=== PATIENT | female | born 1960 | race Caucasian/White ===

== ENCOUNTER 2022-03-08 14:08 | Observation (INO) ==
[2022-03-08] MEDS ORDERED: NS 1,000 ML IV 1,000 ML IV SCH (16:00)
[2022-03-08] MEDS ORDERED: NS 1,000 ML IV 1,000 ML IV ONE (18:10)
[2022-03-08 19:20] LABS: BASOPHILS % (AUTO) 0.8 % (0.2-1.0); EOSINOPHILS % (AUTO) 0.3 % (0.9-2.9); HEMATOCRIT 23.9 % (36.0-47.0); HEMOGLOBIN 7.4 g/dL (12.0-16.0); LYMPHOCYTES % (AUTO) 19.3 % (21.0-51.0); MEAN CORPUSCULAR HEMOGLOBIN 22.5 pg (27.0-34.0); MEAN CORPUSCULAR VOLUME 72.7 fL (80.0-100.0); MEAN PLATELET VOLUME 8.5 fL (7.4-11.0); MONOCYTES # (AUTO) 0.5 x10^3/uL (0.3-0.8); MONOCYTES % (AUTO) 10.5 % (0.0-13.0); NEUTROPHILS # (AUTO) 3.6 x10^3/uL (2.2-4.8); NEUTROPHILS % (AUTO) 69.1 % (42.0-75.0); RED BLOOD COUNT 3.29 X10^6/uL (3.5-5.4); RED CELL DISTRIBUTION WIDTH 18.3 % (11.6-16.5); WHITE BLOOD COUNT 5.2 X10^3/uL (3.6-10.0)
[2022-03-08 19:37] LABS: PLATELET MORPHOLOGY COMMENT NORMAL (NORMAL)
[2022-03-08 19:38] LABS: AMMONIA 15 umol/L (11-32); MICROCYTOSIS SLIGHT
[2022-03-08 19:46] LABS: ALANINE AMINOTRANSFERASE 14 Units/L (12-78); ALBUMIN 2.7 g/dL (3.4-5.0); ALKALINE PHOSPHATASE 84 Units/L (46-116); ASPARTATE AMINO TRANSFERASE 31 Units/L (15-37); BLOOD UREA NITROGEN 13 mg/dL (7-18); CARBON DIOXIDE 35.3 mmol/L (21-32); CHLORIDE 99 mmol/L (98-107); COR NA(FOR HYPERGLY) 141 mmol/L (136-145); CREATININE 0.74 mg/dL (0.55-1.02); FREE T4 (FREE THYROXINE) 1.52 ng/dL (0.76-1.46); MAGNESIUM 2.1 mg/dL (2.0-2.9); SODIUM 140 mmol/L (136-145); TOTAL PROTEIN 7.2 g/dL (6.4-8.2); TSH (3RD GENERATION) 4.891 uIU/mL (0.358-3.74); eGFR NON BLACK RACES > 60 (>60)
[2022-03-08 20:17] VITALS: BMI 49.6
[2022-03-08] MEDS ORDERED: PHARMACY CONSULT LTC MEDICATIONS XX SCH (21:00)
--- NOTE | 2022-03-08 21:00 | EKG ---
Test Reason : TACHY Blood Pressure : */* mmHG Vent. Rate : 137 BPM Atrial Rate : 137 BPM P-R Int : 130 ms QRS Dur : 84 ms QT Int : 268 ms P-R-T Axes : 11 57 -29 degrees QTc Int : 404 ms Sinus tachycardia Low voltage QRS Nonspecific ST and T wave abnormality Abnormal ECG No previous ECGs available Confirmed by Sanjiv Sam ([id number]) on 03/09/2022 3:19:36 PM Referred By: Confirmed By: Sanjiv Sam
[2022-03-08] MEDS: COREG TAB 6.25 MG PO SCH ×3 (21:43→23:49)
[2022-03-08] MEDS ORDERED: NS 250 ML IV 250 ML IV ONE (23:27)
[2022-03-09 02:32] LABS: BILIRUBIN,URINE NEGATIVE (NEGATIVE); BLOOD/HEMOGLOBIN,URINE 4+ (NEGATIVE); GLUCOSE, URINE NEGATIVE (NEGATIVE); KETONES,URINE NEGATIVE (NEGATIVE); LEUKOCYTE ESTERASE ,URINE NEGATIVE (NEGATIVE); NITRITES,URINE NEGATIVE (NEGATIVE); PROTEIN,URINE NEGATIVE (NEGATIVE); UROBILINOGEN,URINE NORMAL (NORMAL)
[2022-03-09 02:38] LABS: APPEARANCE,URINE CLEAR (CLEAR); COLOR,URINE YELLOW (YELLOW); SQUAMOUS EPITHELIAL CELL,UR RARE /HPF (NEGATIVE)
[2022-03-09 02:39] LABS: BACTERIA,URINE NEGATIVE /HPF (NEGATIVE)
[2022-03-09 03:33] LABS: HEMATOCRIT 24.7 % (36.0-47.0); HEMOGLOBIN 7.9 g/dL (12.0-16.0)
[2022-03-09] MEDS ORDERED: POTASSIUM CHL 40 MEQ/NS 0.45% 500 ML IV PRN (07:56)
[2022-03-09] MEDS ORDERED: K-DUR TAB 20 MEQ PO PRN (07:56)
[2022-03-09] MEDS ORDERED: KLOR-CON PO PRN (07:56)
[2022-03-09] MEDS ORDERED: POTASSIUM CHL 60 MEQ/NS 0.45% 500 ML IV PRN (07:56)
[2022-03-09] MEDS ORDERED: POTASSIUM CHLORIDE LIQ 20 MEQ UDC PO PRN (07:56)
[2022-03-09] MEDS ORDERED: MICRO K EXTEN CAP 10 MEQ PO PRN (07:56)
--- NOTE | 2022-03-09 08:35 | RAD ---
HISTORYAMS Relevant Clinical InformationSTUDYCHEST, 1 VIEWCOMPARISONNone availableFINDINGSThere is elevation of the right diaphragm. There is large cardiomegalyMediastinum within normal limits. There is no evidence of dominant pleural effusions or pneumothoraxNo dominant alveolar radiopacities.IMPRESSIONNo acute cardiopulmonary findings. Elevation of the right diaphragm.Electronically signed by: Anni Pierre (Mar 09, 2022 08:34:04)
[2022-03-09] MEDS ORDERED: K-DUR TAB 20 MEQ PO SCH (09:00)
[2022-03-09] MEDS ORDERED: FENTANYL 12 MCG/HR TRANSDERMAL SCH (09:00)
[2022-03-09 09:42] LABS: IRON 32 ug/dL (50-175)
[2022-03-09] MEDS: BUSPAR PO SCH ×2 (10:00→21:41)
[2022-03-09] MEDS: LEXAPRO PO SCH (10:00)
[2022-03-09] MEDS ORDERED: LEXAPRO ONE (10:10)
[2022-03-09] MEDS ORDERED: NS 100 ML IV 100 ML ONE ×2 (10:12→14:19)
[2022-03-09] MEDS: CATAPRES TAB 0.2 MG PO SCH ×2 (10:19→21:43)
[2022-03-09] MEDS: COREG TAB 6.25 MG PO SCH ×2 (10:19→21:41)
[2022-03-09] MEDS: ALDACTONE TAB 25 MG PO SCH (10:21)
[2022-03-09] MEDS: ATARAX TAB 25 MG PO SCH ×2 (10:22→21:42)
[2022-03-09] MEDS: PROTONIX TAB 40 MG PO SCH (10:22)
[2022-03-09] MEDS: ASPIRIN EC 81 MG PO SCH (10:23)
[2022-03-09] MEDS: SENOKOT PO SCH ×2 (10:23→21:42)
[2022-03-09] MEDS: FOLIC ACID TAB 1 MG PO SCH (10:23)
[2022-03-09] MEDS: LASIX PO SCH (10:23)
[2022-03-09] MEDS: K-RIDER 10 MEQ/NS 100 ML 10 MEQ/100 ML BAG IV PRN (10:28)
--- NOTE | 2022-03-09 13:58 | DR.H&P ---
H&P - History & Physical for Day of: H&P Date: 03/08/22 - Chief Complaint Chief Complaint: WEAKNESS - History of Present Illness History of Present Illness: PT IS 61 WF, DIRECT ADMIT WITH ANEMIA AND INCREASED WEAKNESS. PT IS MORBDILY OBESE WITH PMH OF HTN, OA, GERD, ANEMIA, DM WITH OUTPT CBC REVEALING HGB 6.9. PT WAS ADMITTED FOR TREATMENT OF ACUTE ANEMIA WITH PLAN TO TRANSFUSE PRBC PER PROTOCOL. - Past Medical History Past Medical History: Anxiety, Arthritis, Dementia, Depression, Dyslipidemia, GERD, Hypertension - Past Surgical History Surgical History: Unknown - Family History Family Medical History: Hypertension - Social History Does patient currently use any type of tobacco product: No Have you used tobacco products in the last 12 months: No Type of Tobacco Use: None Does any household member use tobacco: No Alcohol Use: None Drug Use: None - Medications Home Medications: bee pollen Allergy (Verified 03/08/22 20:19) bee venom protein (honey bee) Allergy (Verified 03/08/22 20:19) Carbapenems Adverse Reaction (Verified 03/08/22 20:19) Cephalosporins Adverse Reaction (Verified 03/08/22 20:19) Interferons Adverse Reaction (Verified 03/08/22 20:19) CONTINUE taking the following medications albuterol sulfate 90 mcg/actuation aerosol inhaler (ProAir HFA) 1 puff in halation 6XD PRN 03/08/22 [History] aspirin 81 mg capsule 81 mg PO QDAY 03/08/22 [History] buspirone 10 mg tablet 10 mg PO BID 03/08/22 [History] clonidine HCl 0.2 mg tablet 0.2 mg PO BID 03/08/22 [History] cyclobenzaprine 10 mg tablet 10 mg PO TID PRN 03/08/22 [History] ergocalciferol (vitamin D2) 1,250 mcg (50,000 unit) capsule 1,250 mcg PO DAILY 03/08/22 [History] escitalopram oxalate 20 mg tablet (Lexapro) 20 mg PO QDAY 03/08/22 [History] fentanyl 12 mcg/hr transdermal patch 1 patch transdermal Q72H 03/08/22 [History] fentanyl 50 mcg/hr transdermal patch 1 patch transdermal Q72H 03/08/22 [History] folic acid 1 mg tablet 1 mg PO QDAY 03/08/22 [History] furosemide 20 mg tablet 20 mg PO QAM 03/08/22 [History] hydroxyzine HCl 25 mg tablet 25 mg PO BID 03/08/22 [History] magnesium oxide 400 mg PO BID 03/08/22 [History] melatonin 5 mg tablet 5 mg PO HS 03/08/22 [History] metolazone 5 mg tablet 5 mg PO QDAY 03/08/22 [History] pantoprazole 40 mg tablet,delayed release (Protonix) 40 mg PO QDAY 03/08/22 [History] potassium chloride 20 mEq tablet,extended release 20 meq PO QDAY 03/08/22 [History] risperidone 0.5 mg tablet 0.5 mg PO QDAY 03/08/22 [History] risperidone 1 mg tablet 1 mg PO QHS 03/08/22 [History] sennosides 8.6 mg tablet (Senokot) 8.6 mg PO BID 03/08/22 [History] solifenacin 10 mg tablet 10 mg PO QDAY 03/08/22 [History] spironolactone 25 mg tablet (Aldactone) 25 mg PO QDAY 03/08/22 [History] trazodone 50 mg tablet 75 mg PO QHS 03/08/22 [History] - Review of Systems Constitutional: Weakness Eyes: No Symptoms Reported ENT: No Symptoms Reported Respiratory: No Symptoms Reported Cardiovascular: No Symptoms Reported, Edema Gastrointestinal: No Symptoms Reported Genitourinary: Incontinence Musculoskeletal: Back Pain Skin: No Symptoms Reported Neurological: Weakness - Physical Exam Vital Signs: Temperature 99.3 F Pulse Rate [Apical] 95 Respiratory Rate 18 Blood Pressure [Right Arm] 120/63 O2 Sat by Pulse Oximetry 95 Oriented: Person Eyes: Normal Ear: Normal Nose: Normal Respiratory: Diminished Throughout Cardiovascular: Normal Auscultation: Bowel Sounds: Normal Palpation: Normal Tenderness: Normal Skin: Decreased Turgur Musculoskeletal: Left, Arm, Back:Lumbar, Motor Deficit Mood Description: Calm Speech Pattern: Clear - Assessment/Plan (1) Anemia Status: Acute Plan: ADMIT, TRANSFUSE PRBC PER PROTOCOL WITH REPEAT CBC POST TRANSFUSION. VERIFY HOME RESUME HOME MEDICATION. UA AND CMP ON ADMISSION. SUPPLEMENTAL O2 (2) Hypertension Status: Acute (3) Dementia Status: Acute (4) Chronic osteoarthritis Status: Acute - Allergies Allergies/Adverse Reactions: Allergies Allergy/AdvReac Type Severity Reaction Status Date / Time bee pollen Allergy Verified 03/08/22 20:19 bee venom protein (honey bee) Allergy Verified 03/08/22 20:19 Carbapenems AdvReac Verified 03/08/22 20:19 Cephalosporins AdvReac Verified 03/08/22 20:19 Interferons AdvReac Verified 03/08/22 20:19
[2022-03-09] MEDS ORDERED: LASIX IVP ONE (16:00)
[2022-03-09] MEDS ORDERED: K-DUR TAB 20 MEQ PO ONE (16:20)
[2022-03-09] MEDS: K-DUR TAB 20 MEQ PO SCH (17:00)
--- NOTE | 2022-03-09 17:07 | RAD ---
HISTORYPOSSIBLE FLUID OVERLOADSTUDYCHEST, 1 [id number]/2022FINDINGSThe cardiomediastinal silhouette is stable. Similar mild elevation of the right hemidiaphragm. No acute airspace disease. No pneumothorax or effusion. The bony thorax appears intact.IMPRESSIONNo acute cardiopulmonary disease.Electronically signed by: MACK SUTTON (Mar 09, 2022 17:04:58)
[2022-03-09 17:10] LABS: HEMOGLOBIN 9.7 g/dL (12.0-16.0)
[2022-03-09 17:15] LABS: HEMATOCRIT 30.3 % (36.0-47.0)
[2022-03-09] MEDS: RisperDAL TAB 1 MG PO SCH (21:42)
[2022-03-09] MEDS: DESYREL PO SCH (21:43)
[2022-03-10] MEDS: BUSPAR PO SCH ×2 (09:00→22:01)
[2022-03-10] MEDS: K-DUR TAB 20 MEQ PO SCH (09:00)
[2022-03-10 09:12] LABS: BASOPHILS # (AUTO) 0.3 X10^3/uL (0.0-0.1); BASOPHILS % (AUTO) 3.6 % (0.2-1.0); EOSINOPHILS # (AUTO) 0.1 x10^3/uL (0.0-0.2); EOSINOPHILS % (AUTO) 1.7 % (0.9-2.9); HEMATOCRIT 29.4 % (36.0-47.0); HEMOGLOBIN 9.3 g/dL (12.0-16.0); LYMPHOCYTES # (AUTO) 1.3 X10^3/uL (1.3-2.9); LYMPHOCYTES % (AUTO) 16.2 % (21.0-51.0); MEAN CORPUSCULAR HEMOGLOBIN 24.2 pg (27.0-34.0); MEAN CORPUSCULAR HGB CONC 31.8 g/dL (33.0-35.0); MEAN PLATELET VOLUME 8.7 fL (7.4-11.0); MONOCYTES # (AUTO) 0.6 x10^3/uL (0.3-0.8); MONOCYTES % (AUTO) 7.8 % (0.0-13.0); NEUTROPHILS # (AUTO) 5.9 x10^3/uL (2.2-4.8); NEUTROPHILS % (AUTO) 70.7 % (42.0-75.0); RED BLOOD COUNT 3.87 X10^6/uL (3.5-5.4); RED CELL DISTRIBUTION WIDTH 17.8 % (11.6-16.5); WHITE BLOOD COUNT 8.3 X10^3/uL (3.6-10.0)
[2022-03-10 09:22] LABS: ALANINE AMINOTRANSFERASE 15 Units/L (12-78); ALBUMIN 2.7 g/dL (3.4-5.0); ALKALINE PHOSPHATASE 80 Units/L (46-116); ASPARTATE AMINO TRANSFERASE 33 Units/L (15-37); BLOOD UREA NITROGEN 13 mg/dL (7-18); CALCIUM 8.6 mg/dL (8.5-10.1); CARBON DIOXIDE 35.5 mmol/L (21-32); CHLORIDE 100 mmol/L (98-107); COR CA(FOR HYPOALB) 9.6 mg/dL (8.5-10.1); CREATININE 0.76 mg/dL (0.55-1.02); SODIUM 140 mmol/L (136-145); TOTAL PROTEIN 6.9 g/dL (6.4-8.2); eGFR NON BLACK RACES > 60 (>60)
[2022-03-10 09:44] LABS: ANISOCYTOSIS SLIGHT; HYPOCHROMASIA SLIGHT; MICROCYTOSIS SLIGHT; PLATELET MORPHOLOGY COMMENT NORMAL (NORMAL)
[2022-03-10 09:46] LABS: BAND NEUTROPHILS % 2 % (0-10)
[2022-03-10] MEDS ORDERED: LEXAPRO ONE (09:51)
[2022-03-10] MEDS: ALDACTONE TAB 25 MG PO SCH (09:58)
[2022-03-10] MEDS: LEXAPRO PO SCH (09:58)
[2022-03-10] MEDS: ASPIRIN EC 81 MG PO SCH (09:58)
[2022-03-10] MEDS: COREG TAB 6.25 MG PO SCH ×2 (09:59→21:17)
[2022-03-10] MEDS: CATAPRES TAB 0.2 MG PO SCH ×2 (10:01→21:17)
[2022-03-10] MEDS: ATARAX TAB 25 MG PO SCH ×2 (10:01→21:35)
[2022-03-10] MEDS: PROTONIX TAB 40 MG PO SCH (10:02)
[2022-03-10] MEDS: FOLIC ACID TAB 1 MG PO SCH (10:05)
[2022-03-10] MEDS: LASIX PO SCH (10:06)
[2022-03-10] MEDS: SENOKOT PO SCH ×2 (10:06→21:30)
[2022-03-10] MEDS: K-RIDER 10 MEQ/NS 100 ML 10 MEQ/100 ML BAG IV PRN ×6 (10:33→18:32)
[2022-03-10] MEDS: DESYREL PO SCH (21:19)
[2022-03-10] MEDS: RisperDAL TAB 1 MG PO SCH (22:01)
[2022-03-11 02:09] LABS: BASOPHILS # (AUTO) 0.1 X10^3/uL (0.0-0.1); BASOPHILS % (AUTO) 0.8 % (0.2-1.0); EOSINOPHILS # (AUTO) 0.2 x10^3/uL (0.0-0.2); HEMATOCRIT 29.4 % (36.0-47.0); HEMOGLOBIN 9.4 g/dL (12.0-16.0); LYMPHOCYTES # (AUTO) 2.1 X10^3/uL (1.3-2.9); MEAN CORPUSCULAR HEMOGLOBIN 24.4 pg (27.0-34.0); MEAN CORPUSCULAR VOLUME 76.3 fL (80.0-100.0); MEAN PLATELET VOLUME 8.6 fL (7.4-11.0); MONOCYTES % (AUTO) 12.3 % (0.0-13.0); NEUTROPHILS # (AUTO) 4.9 x10^3/uL (2.2-4.8); NEUTROPHILS % (AUTO) 59.9 % (42.0-75.0); RED BLOOD COUNT 3.86 X10^6/uL (3.5-5.4); RED CELL DISTRIBUTION WIDTH 17.9 % (11.6-16.5); WHITE BLOOD COUNT 8.3 X10^3/uL (3.6-10.0)
[2022-03-11 02:19] LABS: ALANINE AMINOTRANSFERASE 14 Units/L (12-78); ALBUMIN 2.6 g/dL (3.4-5.0); ALKALINE PHOSPHATASE 75 Units/L (46-116); ASPARTATE AMINO TRANSFERASE 34 Units/L (15-37); BLOOD UREA NITROGEN 12 mg/dL (7-18); CALCIUM 8.4 mg/dL (8.5-10.1); CARBON DIOXIDE 32.9 mmol/L (21-32); CHLORIDE 101 mmol/L (98-107); COR CA(FOR HYPOALB) 9.5 mg/dL (8.5-10.1); CREATININE 0.64 mg/dL (0.55-1.02); MAGNESIUM 1.6 mg/dL (2.0-2.9); SODIUM 138 mmol/L (136-145); TOTAL PROTEIN 6.8 g/dL (6.4-8.2); eGFR NON BLACK RACES > 60 (>60)
[2022-03-11] MEDS: MAGNESIUM SULFATE 1 GRAM/100 mL PREMIX 1 G/100 ML BAG IV PRN ×2 (02:33→03:31)
[2022-03-11] MEDS ORDERED: LEXAPRO ONE (09:07)
[2022-03-11] MEDS: K-DUR TAB 20 MEQ PO SCH (09:08)
[2022-03-11] MEDS: COREG TAB 6.25 MG PO SCH (09:09)
[2022-03-11] MEDS: LEXAPRO PO SCH (09:09)
[2022-03-11] MEDS: FOLIC ACID TAB 1 MG PO SCH (09:09)
[2022-03-11] MEDS: ASPIRIN EC 81 MG PO SCH (09:09)
[2022-03-11] MEDS: SENOKOT PO SCH (09:09)
[2022-03-11] MEDS: CATAPRES TAB 0.2 MG PO SCH (09:09)
[2022-03-11] MEDS: ALDACTONE TAB 25 MG PO SCH (09:09)
[2022-03-11] MEDS: LASIX PO SCH (09:09)
[2022-03-11] MEDS: ATARAX TAB 25 MG PO SCH (09:09)
[2022-03-11] MEDS: PROTONIX TAB 40 MG PO SCH (09:10)
[2022-03-11] MEDS: BUSPAR PO SCH (09:10)
[2022-03-11 12:42] VITALS: BP 110/56
== END 2022-03-11 13:08 ==
LOC: MED/SURG
PROVIDERS: ADMIT Internal Medicine; ATTEND Internal Medicine
DX: E66.01 Morbid (severe) obesity due to excess calories; R41.82 Altered mental status, unspecified; E11.65 Type 2 diabetes mellitus with hyperglycemia; D64.89 Other specified anemias; R94.31 Abnormal electrocardiogram [ECG] [EKG]; E78.2 Mixed hyperlipidemia; I10 Essential (primary) hypertension; E87.6 Hypokalemia; E53.1 Pyridoxine deficiency; F41.8 Other specified anxiety disorders; K21.9 Gastro-esophageal reflux disease without esophagitis; M19.90 Unspecified osteoarthritis, unspecified site; B96.29 Other Escherichia coli [E. coli] as the cause of diseases classified elsewhere

== ENCOUNTER 2022-03-12 14:55 | Inpatient (IN) ==
[2022-03-12 17:33] VITALS: BMI 49.6
[2022-03-12 17:50] LABS: ABG ALLEN TEST POS; ABG BASE EXCESS 3.8 mmol/L (-2.0-2.0); ABG HCO3 29.7 mmol/L (22-26)
[2022-03-12] MEDS ORDERED: ROCEPHIN 1 GRAM IV PREMIX 1 G/50 ML IV.SOLN. IV SCH (19:00)
[2022-03-12 19:31] LABS: BASOPHILS # (AUTO) 0.1 X10^3/uL (0.0-0.1); BASOPHILS % (AUTO) 0.7 % (0.2-1.0); EOSINOPHILS # (AUTO) 0.2 x10^3/uL (0.0-0.2); HEMATOCRIT 30.7 % (36.0-47.0); HEMOGLOBIN 9.6 g/dL (12.0-16.0); LYMPHOCYTES # (AUTO) 1.5 X10^3/uL (1.3-2.9); LYMPHOCYTES % (AUTO) 18.1 % (21.0-51.0); MEAN CORPUSCULAR HEMOGLOBIN 23.6 pg (27.0-34.0); MEAN CORPUSCULAR HGB CONC 31.4 g/dL (33.0-35.0); MEAN CORPUSCULAR VOLUME 75.3 fL (80.0-100.0); MEAN PLATELET VOLUME 8.2 fL (7.4-11.0); MONOCYTES # (AUTO) 0.7 x10^3/uL (0.3-0.8); MONOCYTES % (AUTO) 8.4 % (0.0-13.0); NEUTROPHILS # (AUTO) 5.9 x10^3/uL (2.2-4.8); NEUTROPHILS % (AUTO) 70.8 % (42.0-75.0); RED BLOOD COUNT 4.08 X10^6/uL (3.5-5.4); RED CELL DISTRIBUTION WIDTH 17.5 % (11.6-16.5); WHITE BLOOD COUNT 8.4 X10^3/uL (3.6-10.0)
--- NOTE | 2022-03-12 19:38 | RAD ---
HISTORYAMSSTUDYCHEST, 1 VIEWCOMPARISONDeceer 2021TECHNIQUEChest radiographic imaging, frontal projection, 1 imageFINDINGSNo cardiomegaly.No focal airspace disease.No pleural effusion.No pneumothorax.No acute osseous abnormality.Elevation of the right diaphragm; as seen on the previous exam.IMPRESSIONNo imaging findings of acute cardiopulmonary disease.Electronically signed by: Wei Moreno (Mar 12, 2022 19:37:05)
[2022-03-12 19:43] LABS: AMMONIA 12 umol/L (11-32)
[2022-03-12 19:51] LABS: ALANINE AMINOTRANSFERASE 18 Units/L (12-78); ALBUMIN 2.8 g/dL (3.4-5.0); ALKALINE PHOSPHATASE 76 Units/L (46-116); ASPARTATE AMINO TRANSFERASE 34 Units/L (15-37); BLOOD UREA NITROGEN 10 mg/dL (7-18); CALCIUM 8.7 mg/dL (8.5-10.1); CARBON DIOXIDE 30.5 mmol/L (21-32); CHLORIDE 100 mmol/L (98-107); COR CA(FOR HYPOALB) 9.7 mg/dL (8.5-10.1); CREATININE 0.59 mg/dL (0.55-1.02); FREE T4 (FREE THYROXINE) 1.53 ng/dL (0.76-1.46); SODIUM 139 mmol/L (136-145); TOTAL PROTEIN 7.2 g/dL (6.4-8.2); TSH (3RD GENERATION) 4.139 uIU/mL (0.358-3.74); eGFR NON BLACK RACES > 60 (>60)
[2022-03-12] MEDS: NS 1,000 ML IV 1,000 ML IV SCH (20:00)
[2022-03-12] MEDS ORDERED: LEVAQUIN PREMIX IV 500 MG 500 MG/100 ML BAG IV ONE (20:18)
[2022-03-12 20:20] LABS: IRON 25 ug/dL (50-175)
[2022-03-12] MEDS: COREG TAB 6.25 MG PO SCH (21:06)
[2022-03-12] MEDS: CATAPRES TAB 0.2 MG PO SCH (21:06)
[2022-03-12 21:09] LABS: BILIRUBIN,URINE 1+ (NEGATIVE); BLOOD/HEMOGLOBIN,URINE 5+ (NEGATIVE); GLUCOSE, URINE NEGATIVE (NEGATIVE); KETONES,URINE 4+ (NEGATIVE); LEUKOCYTE ESTERASE ,URINE 3+ (NEGATIVE); NITRITES,URINE POSITIVE (NEGATIVE); PROTEIN,URINE 3+ (NEGATIVE); UROBILINOGEN,URINE 1+ (NORMAL)
[2022-03-12 21:14] LABS: APPEARANCE,URINE CLOUDY (CLEAR); BACTERIA,URINE 2+ /HPF (NEGATIVE); COLOR,URINE YELLOW (YELLOW); RBC,URINE TNTC /HPF (0-3); SQUAMOUS EPITHELIAL CELL,UR FEW /HPF (NEGATIVE)
[2022-03-12] MEDS: NYSTATIN POWDER TOP SCH (21:15)
--- NOTE | 2022-03-12 22:53 | CT ---
HISTORYAMSSTUDYBRAIN W/O CONCOMPARISONNone available.TECHNIQUEAxial non-contrast images of the head were obtained with coronal and sagittal reformats provided.Radiation dose: 817.54 mGy-cm total DLPFINDINGSNo abnormal areas of acute attenuation in the brain parenchyma.Oneal-white differentiation remains intact.No intracranial, extra-axial, fluid collection.No hemorrhage.Periventricular chronic microvascular disease.No mass, mass effect or midline shift.Age related brain parenchymal global atrophy.No ventriculomegaly.No acute fracture.Sinuses are well aerated.Mastoid air cells are well aerated.Globes and intra-orbital contents are unremarkable.Cerumen in the external auditory canals.IMPRESSIONNo acute intracranial abnormality identified.Electronically signed by: Wei Moreno (Mar 12, 2022 22:51:03)
[2022-03-13] MEDS ORDERED: PHARMACY CONSULT - TOBRAMYCIN XX SCH (02:00)
[2022-03-13] MEDS: TOBRAMYCIN SULFATE 80 MG in NS 100 ML IV 98 ML IV SCH ×3 (02:17→21:28)
[2022-03-13] MEDS ORDERED: TOBRAMYCIN SULFATE 400 MG in NS 100 ML IV 100 ML IV SCH (02:30)
[2022-03-13] MEDS: INVanz INJ 1 GRAM VIAL 1 G in NS 100 ML IV 100 ML IV SCH (03:11)
[2022-03-13] MEDS ORDERED: TOBRAMYCIN SULFATE 80 MG in NS 100 ML IV 98 ML IV SCH (06:00)
[2022-03-13] MEDS: COREG TAB 6.25 MG PO SCH ×2 (09:42→20:28)
[2022-03-13] MEDS: CATAPRES TAB 0.2 MG PO SCH (09:42)
[2022-03-13] MEDS: LOVENOX INJ 40 MG SYR SC SCH (09:43)
[2022-03-13] MEDS: NYSTATIN POWDER TOP SCH ×2 (10:00→20:38)
[2022-03-13] MEDS: NS 1,000 ML IV 1,000 ML IV SCH ×2 (10:00→19:30)
[2022-03-13] MEDS ORDERED: PHARMACY CONSULT LTC MEDICATIONS XX SCH (17:00)
[2022-03-13] MEDS: ASPIRIN EC 81 MG PO SCH (17:42)
[2022-03-13] MEDS: ZAROXOLYN PO SCH (17:42)
[2022-03-13] MEDS: PROTONIX TAB 40 MG PO SCH (17:43)
[2022-03-13] MEDS: K-DUR TAB 20 MEQ PO SCH (17:43)
[2022-03-13] MEDS: HEMOCYTE-PLUS PO SCH (17:43)
--- NOTE | 2022-03-13 17:47 | DR.H&P ---
H&P - History & Physical for Day of: H&P Date: 03/12/22 - Chief Complaint Chief Complaint: AMS - History of Present Illness History of Present Illness: PT IS 61 WF, RESIDENT OF [facility] WITH REPORTS OF ALTERED MENTAL STATUS. NURSING STAFF REPORT PT ALSO INCREASED LEFT SIDE WEAKNESS. PT HAS PMH OF ANEMIA, HTN, CHRONIC PAIN, OA, COPD, DM. PT ADMITTED FOR TREATMENT AND EVALUATION OF ACUTE ILLNESS. RO SEPSIS, CVA. - Past Medical History Past Medical History: Anxiety, Arthritis, Dementia, Depression, Dyslipidemia, GERD, Hypertension - Past Surgical History Surgical History: Unknown - Family History Family Medical History: Hypertension - Social History Does patient currently use any type of tobacco product: No Type of Tobacco Use: None Does any household member use tobacco: No Alcohol Use: None Drug Use: None - Medications Home Medications: bee pollen Allergy (Verified 03/08/22 20:19) bee venom protein (honey bee) Allergy (Verified 03/08/22 20:19) Carbapenems Adverse Reaction (Verified 03/08/22 20:19) Cephalosporins Adverse Reaction (Verified 03/08/22 20:19) Interferons Adverse Reaction (Verified 03/08/22 20:19) - Review of Systems Constitutional: No Symptoms Reported, Weakness Eyes: No Symptoms Reported ENT: No Symptoms Reported Cardiovascular: Edema Gastrointestinal: Nausea Genitourinary: Incontinence Musculoskeletal: Back Pain Skin: No Symptoms Reported Neurological: Weakness, Confusion - Physical Exam Vital Signs: Temperature 98.9 F Pulse Rate [Right Radial] 114 Pulse Rate 82 Respiratory Rate 17 Blood Pressure [Right Arm] 151/96 Blood Pressure 119/59 O2 Sat by Pulse Oximetry 100 Oriented: Person Eyes: Normal Ear: Normal Nose: Normal Throat: Normal Respiratory: Wheezes Throughout Cardiovascular: Normal, Edema Auscultation: Bowel Sounds: Normal Palpation: Normal Tenderness: Normal Skin: Decreased Turgur Musculoskeletal: Normal, Right, Back:Lumbar, Motor Deficit Psychiatric: Normal Mood Description: Calm Speech Pattern: Clear - Assessment/Plan (1) Altered mental status Status: Acute Plan: ADMIT CT HEAD ON ADMISSION. BLOOD AND URINE CULTURE. IV HYDRATION, IV ATBX THERAPY. VERIFY HOME MEDICATION (2) Urinary tract infection Status: Acute (3) Anemia Status: Acute (4) Hypertension Status: Acute - Allergies Allergies/Adverse Reactions: Allergies Allergy/AdvReac Type Severity Reaction Status Date / Time bee pollen Allergy Verified 03/08/22 20:19 bee venom protein (honey bee) Allergy Verified 03/08/22 20:19 Carbapenems AdvReac Verified 03/08/22 20:19 Cephalosporins AdvReac Verified 03/08/22 20:19 Interferons AdvReac Verified 03/08/22 20:19
[2022-03-13] MEDS: MAG-OX TAB PO SCH (20:28)
[2022-03-13] MEDS: NORCO 5/325 MG TAB PO PRN (20:28)
[2022-03-13] MEDS ORDERED: CATAPRES TAB 0.2 MG PO SCH (21:00)
[2022-03-13] MEDS ORDERED: RisperDAL TAB 1 MG PO SCH (21:00)
[2022-03-13] MEDS ORDERED: BUSPAR PO SCH (21:00)
[2022-03-13] MEDS ORDERED: DESYREL PO SCH (21:00)
[2022-03-14] MEDS: NORCO 5/325 MG TAB PO PRN ×4 (03:23→23:39)
[2022-03-14] MEDS: NS 1,000 ML IV 1,000 ML IV SCH ×2 (03:25→15:00)
[2022-03-14 05:25] LABS: BASOPHILS # (AUTO) 0.1 X10^3/uL (0.0-0.1); BASOPHILS % (AUTO) 1.2 % (0.2-1.0); EOSINOPHILS # (AUTO) 0.1 x10^3/uL (0.0-0.2); EOSINOPHILS % (AUTO) 1.9 % (0.9-2.9); HEMATOCRIT 30.8 % (36.0-47.0); HEMOGLOBIN 9.8 g/dL (12.0-16.0); LYMPHOCYTES # (AUTO) 1.6 X10^3/uL (1.3-2.9); MEAN CORPUSCULAR HEMOGLOBIN 24.1 pg (27.0-34.0); MEAN CORPUSCULAR HGB CONC 31.7 g/dL (33.0-35.0); MONOCYTES # (AUTO) 0.6 x10^3/uL (0.3-0.8); MONOCYTES % (AUTO) 10.8 % (0.0-13.0); NEUTROPHILS # (AUTO) 3.4 x10^3/uL (2.2-4.8); NEUTROPHILS % (AUTO) 59.1 % (42.0-75.0); RED BLOOD COUNT 4.05 X10^6/uL (3.5-5.4); RED CELL DISTRIBUTION WIDTH 17.9 % (11.6-16.5); WHITE BLOOD COUNT 5.8 X10^3/uL (3.6-10.0)
[2022-03-14] MEDS ORDERED: PHARMACY COMMENT IV NR ×3 (05:30→09:00)
[2022-03-14 05:34] LABS: ALANINE AMINOTRANSFERASE 17 Units/L (12-78); ALBUMIN 2.6 g/dL (3.4-5.0); ALKALINE PHOSPHATASE 66 Units/L (46-116); ASPARTATE AMINO TRANSFERASE 29 Units/L (15-37); BLOOD UREA NITROGEN 6 mg/dL (7-18); CALCIUM 8.6 mg/dL (8.5-10.1); CHLORIDE 102 mmol/L (98-107); COR CA(FOR HYPOALB) 9.7 mg/dL (8.5-10.1); SODIUM 140 mmol/L (136-145); TOTAL PROTEIN 6.9 g/dL (6.4-8.2); eGFR NON BLACK RACES > 60 (>60)
[2022-03-14 06:08] LABS: TOBRAMYCIN,TROUGH 2.2 ug/mL (0-2)
[2022-03-14] MEDS: TOBRAMYCIN SULFATE 80 MG in NS 100 ML IV 98 ML IV SCH ×2 (06:34→07:30)
[2022-03-14] MEDS ORDERED: LEXAPRO PO SCH (09:00)
[2022-03-14] MEDS: FOLIC ACID TAB 1 MG PO SCH (09:54)
[2022-03-14] MEDS: LOVENOX INJ 40 MG SYR SC SCH (09:54)
[2022-03-14] MEDS: K-DUR TAB 20 MEQ PO SCH (09:54)
[2022-03-14] MEDS: LASIX PO SCH (09:54)
[2022-03-14] MEDS: ASPIRIN EC 81 MG PO SCH (09:54)
[2022-03-14] MEDS: NYSTATIN POWDER TOP SCH ×2 (09:56→21:19)
[2022-03-14] MEDS: HEMOCYTE-PLUS PO SCH (09:56)
[2022-03-14] MEDS: COREG TAB 6.25 MG PO SCH ×2 (09:56→21:19)
[2022-03-14] MEDS: MAG-OX TAB PO SCH ×2 (09:56→21:19)
[2022-03-14] MEDS: ZAROXOLYN PO SCH (10:00)
[2022-03-14] MEDS: INVanz INJ 1 GRAM VIAL 1 G in NS 100 ML IV 100 ML IV SCH (10:00)
[2022-03-14] MEDS: PROTONIX TAB 40 MG PO SCH (11:33)
[2022-03-14] MEDS: TOBRAMYCIN SULFATE 100 MG in NS 100 ML IV 97.5 ML IV SCH ×2 (14:43→21:20)
--- NOTE | 2022-03-14 17:56 | PCM.PROG ---
Progress Note - Progress Note for Day of Date of Exam: 03/13/22 - Subjective Subjective: PT IS 61WF, ADMITTED WITH AMS DUE TO ACUTE URINARY TRACT INFECTION. PT IS CURRENTLY ON IV ATBX THERAPY WITH INVANZ. PT CONTINUES WITH DIFFUSE WEAKNESS. PT IS MORE AWAKE THIS MORNING. DR TRAN REVIEWED HER HOME MEDICATION AND MADE ADJUSTMENTS TO MAR. WILL REPEAT AM LABS, CONTINUE STRICT I&O S - Past Medical Family Social History Past Med/Fam/Surg Hx: No changes since H&P Allergies: Allergies bee pollen Allergy (Verified 03/08/22 20:19) bee venom protein (honey bee) Allergy (Verified 03/08/22 20:19) Carbapenems Adverse Reaction (Verified 03/08/22 20:19) Cephalosporins Adverse Reaction (Verified 03/08/22 20:19) Interferons Adverse Reaction (Verified 03/08/22 20:19) - Review of Systems ROS: No change since H&P - Vital Signs and I&O's Vital Signs: Temperature 98.6 F Pulse Rate [Right Radial] 114 Pulse Rate 90 Respiratory Rate 21 Blood Pressure [Right Arm] 151/96 Blood Pressure 108/51 O2 Sat by Pulse Oximetry 100 Intake and Output: Intake & Output 03/12/22 03/13/22 03/14/22 03/15/22 11:59 11:59 11:59 11:59 Intake Total 1150 / 1150 1710 / 1710 626 / 626 Output Total 600 / 600 Balance 550 / 550 1710 / 1710 626 / 626 - Physical Exam Oriented: Person Eyes: Normal Ear: Normal Nose: Normal Throat: Normal Respiratory: Diminished Cardiovascular: Normal, Edema Auscultation: Bowel Sounds: Normal Tenderness: Normal Skin: Decreased Turgur Musculoskeletal: Normal, Right, Back:Lumbar, Motor Deficit Psychiatric: Normal Mood Description: Calm Speech Pattern: Clear, Appropriate - Laboratory and Diagnostics Result Diagrams: 03/14/22 04:09 03/14/22 04:09 Labs: 03/12/22 19:23 Blood Blood Culture - Preliminary 03/12/22 19:12 Blood Blood Culture - Preliminary 03/12/22 20:55 Urine,Clean Catch Urine Culture - Preliminary Laboratory WBC 5.8 X10^3/uL (3.6-10.0) 03/14/22 04:09 RBC 4.05 X10^6/uL (3.5-5.4) 03/14/22 04:09 Hgb 9.8 g/dL (12.0-16.0) L 03/14/22 04:09 Hct 30.8 % (36.0-47.0) L 03/14/22 04:09 MCV 76.0 fL (80.0-100.0) L 03/14/22 04:09 MCH 24.1 pg (27.0-34.0) L 03/14/22 04:09 MCHC 31.7 g/dL (33.0-35.0) L 03/14/22 04:09 RDW 17.9 % (11.6-16.5) H 03/14/22 04:09 Plt Count 142 X10^3/uL (150.0-450.0) L 03/14/22 04:09 MPV 9.0 fL (7.4-11.0) 03/14/22 04:09 Neut % (Auto) 59.1 % (42.0-75.0) 03/14/22 04:09 Lymph % (Auto) 27.0 % (21.0-51.0) 03/14/22 04:09 [place] % (Auto) 10.8 % (0.0-13.0) 03/14/22 04:09 Eos % (Auto) 1.9 % (0.9-2.9) 03/14/22 04:09 Baso % (Auto) 1.2 % (0.2-1.0) H 03/14/22 04:09 Neut # (Auto) 3.4 x10^3/uL (2.2-4.8) 03/14/22 04:09 Lymph # (Auto) 1.6 X10^3/uL (1.3-2.9) 03/14/22 04:09 [place] # (Auto) 0.6 x10^3/uL (0.3-0.8) 03/14/22 04:09 Eos # (Auto) 0.1 x10^3/uL (0.0-0.2) 03/14/22 04:09 Baso # (Auto) 0.1 X10^3/uL (0.0-0.1) 03/14/22 04:09 Absolute Nucleated RBC 0.1 /100WBC 03/14/22 04:09 Sample Site Rr 03/12/22 17:44 ABG pH 7.390 (7.35-7.45) 03/12/22 17:44 ABG pCO2 49.0 mmHg (35.0-45.0) H 03/12/22 17:44 ABG pO2 69.0 mmHg (80.0-100.0) L 03/12/22 17:44 ABG HCO3 29.7 mmol/L (22-26) H 03/12/22 17:44 ABG O2 Saturation 93.0 % (90-100) 03/12/22 17:44 ABG Base Excess 3.8 mmol/L (-2.0-2.0) H 03/12/22 17:44 Axel Test Pos 03/12/22 17:44 A-a Gradient 19.0 mmHg 03/12/22 17:44 FiO2 21.0 03/12/22 17:44 Blood Gas Comments Pt tray wellcdn 03/12/22 17:44 Sodium 140 mmol/L (136-145) 03/14/22 04:09 Corrected Sodium TNP 03/14/22 04:09 Potassium 3.5 mmol/L (3.5-5.1) 03/14/22 04:09 Chloride 102 mmol/L (98-107) 03/14/22 04:09 Carbon Dioxide 32.0 mmol/L (21-32) 03/14/22 04:09 BUN 6 mg/dL (7-18) L 03/14/22 04:09 Creatinine 0.60 mg/dL (0.55-1.02) 03/14/22 04:09 Est GFR (MDRD) Af Amer > 60 (>60) 03/14/22 04:09 Est GFR (MDRD) Non-Af > 60 (>60) 03/14/22 04:09 Glucose 82 mg/dL (65-99) 03/14/22 04:09 POC Glucose (mg/dL) 91 mg/dL (65-99) 03/13/22 05:41 Calcium 8.6 mg/dL (8.5-10.1) 03/14/22 04:09 Corrected Calcium 9.7 mg/dL (8.5-10.1) 03/14/22 04:09 Iron 25 ug/dL (50-175) L 03/12/22 19:23 Total Bilirubin 0.40 mg/dL (0.2-1.0) 03/14/22 04:09 AST 29 Units/L (15-37) 03/14/22 04:09 ALT 17 Units/L (12-78) 03/14/22 04:09 Alkaline Phosphatase 66 Units/L (46-116) 03/14/22 04:09 Ammonia 12 umol/L (11-32) 03/12/22 19:23 Total Protein 6.9 g/dL (6.4-8.2) 03/14/22 04:09 Albumin 2.6 g/dL (3.4-5.0) L 03/14/22 04:09 Globulin 4.3 g/dL (2.5-4.5) 03/14/22 04:09 Albumin/Globulin Ratio 0.6 Ratio (1.1-2.1) L 03/14/22 04:09 Free T4 1.53 ng/dL (0.76-1.46) H 03/12/22 19:23 TSH 3rd Generation 4.139 uIU/mL (0.358-3.74) H 03/12/22 19:23 Specimen Type Catherized urine 03/12/22 20:55 Urine Color Yellow (YELLOW) 03/12/22 20:55 Urine Appearance Cloudy (CLEAR) 03/12/22 20:55 Urine pH 5.0 (5.0 - 8.0) 03/12/22 20:55 Ur Specific [place] 1.025 (1.000-1.030) 03/12/22 20:55 Urine Protein 3+ (NEGATIVE) 03/12/22 20:55 Urine Glucose (UA) Negative (NEGATIVE) 03/12/22 20:55 Urine Ketones 4+ (NEGATIVE) 03/12/22 20: Urine Blood 5+ (NEGATIVE) 03/12/22 20: Urine Nitrite Positive (NEGATIVE) 03/12/22 20: Urine Bilirubin 1+ (NEGATIVE) 03/12/22 20:55 Urine Urobilinogen 1+ (NORMAL) 03/12/22 20:55 Ur Leukocyte Esterase 3+ (NEGATIVE) 03/12/22 20:55 Urine RBC Tntc /HPF (0-3) A 03/12/22 20:55 Urine WBC Tntc /HPF (0-5) A 03/12/22 20:55 Ur Squamous Epith Cells Few /HPF (NEGATIVE) 03/12/22 20:55 Urine Bacteria 2+ /HPF (NEGATIVE) 03/12/22 20:55 Ur Culture Indicated? Yes/culture set up 03/12/22 20:55 Tobramycin Peak 3.7 ug/mL (4-8) L 03/14/22 10:15 Tobramycin Trough 2.2 ug/mL (0-2) H* 03/14/22 04:09 - Plan (1) Altered mental status Status: Acute Plan: CT HEAD ON ADMISSION, NEGATIVE FOR ACUTE CVA. BLOOD AND URINE CULTURE. IV HYDRATION, IV ATBX THERAPY. CONTINUE BP MONITORING, CONTINUE SUPPLEMENTAL O2 (2) Urinary tract infection Status: Acute (3) Anemia Status: Acute (4) Hypertension Status: Acute
--- NOTE | 2022-03-14 18:00 | PCM.PROG ---
Progress Note - Progress Note for Day of Date of Exam: 03/14/22 - Subjective Subjective: PT IS 61WF, ADMITTED WITH AMS DUE TO ACUTE URINARY TRACT INFECTION. PT IS CURRENTLY ON IV ATBX THERAPY WITH INVANZ. URINE CULTURE POSITIVE FOR >100K GRAM NEGATIVE RODS. PT CONTINUES WITH DIFFUSE WEAKNESS. PT IS MORE AWAKE THIS MORNING. DR TRAN REVIEWED HER HOME MEDICATION AND MADE ADJUSTMENTS TO MAR. WILL REPEAT AM LABS, CONTINUE STRICT I&OS - Past Medical Family Social History Past Med/Fam/Surg Hx: No changes since H&P Allergies: Allergies bee pollen Allergy (Verified 03/08/22 20:19) bee venom protein (honey bee) Allergy (Verified 03/08/22 20:19) Carbapenems Adverse Reaction (Verified 03/08/22 20:19) Cephalosporins Adverse Reaction (Verified 03/08/22 20:19) Interferons Adverse Reaction (Verified 03/08/22 20:19) - Review of Systems ROS: No change since H&P - Vital Signs and I&O's Vital Signs: Temperature 98.6 F Pulse Rate [Right Radial] 114 Pulse Rate 90 Respiratory Rate 21 Blood Pressure [Right Arm] 151/96 Blood Pressure 108/51 O2 Sat by Pulse Oximetry 100 Intake and Output: Intake & Output 03/12/22 03/13/22 03/14/22 03/15/22 11:59 11:59 11:59 11:59 Intake Total 1150 / 1150 1710 / 1710 626 / 626 Output Total 600 / 600 Balance 550 / 550 1710 / 1710 626 / 626 - Physical Exam Oriented: Person Eyes: Normal Ear: Normal Nose: Normal Throat: Normal Respiratory: Diminished Cardiovascular: Normal, Edema Auscultation: Bowel Sounds: Normal Tenderness: Normal Skin: Decreased Turgur Musculoskeletal: Normal, Right, Back:Lumbar, Motor Deficit Psychiatric: Normal Mood Description: Calm Speech Pattern: Clear, Appropriate - Laboratory and Diagnostics Result Diagrams: 03/14/22 04:09 03/14/22 04:09 Labs: 03/12/22 19:23 Blood Blood Culture - Preliminary 03/12/22 19:12 Blood Blood Culture - Preliminary 03/12/22 20:55 Urine,Clean Catch Urine Culture - Preliminary Laboratory WBC 5.8 X10^3/uL (3.6-10.0) 03/14/22 04:09 RBC 4.05 X10^6/uL (3.5-5.4) 03/14/22 04:09 Hgb 9.8 g/dL (12.0-16.0) L 03/14/22 04:09 Hct 30.8 % (36.0-47.0) L 03/14/22 04:09 MCV 76.0 fL (80.0-100.0) L 03/14/22 04:09 MCH 24.1 pg (27.0-34.0) L 03/14/22 04:09 MCHC 31.7 g/dL (33.0-35.0) L 03/14/22 04:09 RDW 17.9 % (11.6-16.5) H 03/14/22 04:09 Plt Count 142 X10^3/uL (150.0-450.0) L 03/14/22 04:09 MPV 9.0 fL (7.4-11.0) 03/14/22 04:09 Neut % (Auto) 59.1 % (42.0-75.0) 03/14/22 04:09 Lymph % (Auto) 27.0 % (21.0-51.0) 03/14/22 04:09 [place] % (Auto) 10.8 % (0.0-13.0) 03/14/22 04:09 Eos % (Auto) 1.9 % (0.9-2.9) 03/14/22 04:09 Baso % (Auto) 1.2 % (0.2-1.0) H 03/14/22 04:09 Neut # (Auto) 3.4 x10^3/uL (2.2-4.8) 03/14/22 04:09 Lymph # (Auto) 1.6 X10^3/uL (1.3-2.9) 03/14/22 04:09 [place] # (Auto) 0.6 x10^3/uL (0.3-0.8) 03/14/22 04:09 Eos # (Auto) 0.1 x10^3/uL (0.0-0.2) 03/14/22 04:09 Baso # (Auto) 0.1 X10^3/uL (0.0-0.1) 03/14/22 04:09 Absolute Nucleated RBC 0.1 /100WBC 03/14/22 04:09 Sample Site Rr 03/12/22 17:44 ABG pH 7.390 (7.35-7.45) 03/12/22 17:44 ABG pCO2 49.0 mmHg (35.0-45.0) H 03/12/22 17:44 ABG pO2 69.0 mmHg (80.0-100.0) L 03/12/22 17:44 ABG HCO3 29.7 mmol/L (22-26) H 03/12/22 17:44 ABG O2 Saturation 93.0 % (90-100) 03/12/22 17:44 ABG Base Excess 3.8 mmol/L (-2.0-2.0) H 03/12/22 17:44 Axel Test Pos 03/12/22 17:44 A-a Gradient 19.0 mmHg 03/12/22 17:44 FiO2 21.0 03/12/22 17:44 Blood Gas Comments Pt tray wellcdn 03/12/22 17:44 Sodium 140 mmol/L (136-145) 03/14/22 04:09 Corrected Sodium TNP 03/14/22 04:09 Potassium 3.5 mmol/L (3.5-5.1) 03/14/22 04:09 Chloride 102 mmol/L (98-107) 03/14/22 04:09 Carbon Dioxide 32.0 mmol/L (21-32) 03/14/22 04:09 BUN 6 mg/dL (7-18) L 03/14/22 04:09 Creatinine 0.60 mg/dL (0.55-1.02) 03/14/22 04:09 Est GFR (MDRD) Af Amer > 60 (>60) 03/14/22 04:09 Est GFR (MDRD) Non-Af > 60 (>60) 03/14/22 04:09 Glucose 82 mg/dL (65-99) 03/14/22 04:09 POC Glucose (mg/dL) 91 mg/dL (65-99) 03/13/22 05:41 Calcium 8.6 mg/dL (8.5-10.1) 03/14/22 04:09 Corrected Calcium 9.7 mg/dL (8.5-10.1) 03/14/22 04:09 Iron 25 ug/dL (50-175) L 03/12/22 19:23 Total Bilirubin 0.40 mg/dL (0.2-1.0) 03/14/22 04:09 AST 29 Units/L (15-37) 03/14/22 04:09 ALT 17 Units/L (12-78) 03/14/22 04:09 Alkaline Phosphatase 66 Units/L (46-116) 03/14/22 04:09 Ammonia 12 umol/L (11-32) 03/12/22 19:23 Total Protein 6.9 g/dL (6.4-8.2) 03/14/22 04:09 Albumin 2.6 g/dL (3.4-5.0) L 03/14/22 04:09 Globulin 4.3 g/dL (2.5-4.5) 03/14/22 04:09 Albumin/Globulin Ratio 0.6 Ratio (1.1-2.1) L 03/14/22 04:09 Free T4 1.53 ng/dL (0.76-1.46) H 03/12/22 19:23 TSH 3rd Generation 4.139 uIU/mL (0.358-3.74) H 03/12/22 19:23 Specimen Type Catherized urine 03/12/22 20:55 Urine Color Yellow (YELLOW) 03/12/22 20:55 Urine Appearance Cloudy (CLEAR) 03/12/22 20:55 Urine pH 5.0 (5.0 - 8.0) 03/12/22 20:55 Ur Specific [place] 1.025 (1.000-1.030) 03/12/22 20:55 Urine Protein 3+ (NEGATIVE) 03/12/22 20:55 Urine Glucose (UA) Negative (NEGATIVE) 03/12/22 20:55 Urine Ketones 4+ (NEGATIVE) 03/12/22 20:55 Urine Blood 5+ (NEGATIVE) 03/12/22 20:55 Urine Nitrite Positive (NEGATIVE) 03/12/22 20:55 Urine Bilirubin 1+ (NEGATIVE) 03/12/22 20:55 Urine Urobilinogen 1+ (NORMAL) 03/12/22 20:55 Ur Leukocyte Esterase 3+ (NEGATIVE) 03/12/22 20:55 Urine RBC Tntc /HPF (0-3) A 03/12/22 20:55 Urine WBC Tntc /HPF (0-5) A 03/12/22 20:55 Ur Squamous Epith Cells Few /HPF (NEGATIVE) 03/12/22 20:55 Urine Bacteria 2+ /HPF (NEGATIVE) 03/12/22 20:55 Ur Culture Indicated? Yes/culture set up 03/12/22 20:55 Tobramycin Peak 3.7 ug/mL (4-8) L 03/14/22 10:15 Tobramycin Trough 2.2 ug/mL (0-2) H* 03/14/22 04:09 - Plan (1) Altered mental status Status: Acute Plan: CT HEAD ON ADMISSION, NEGATIVE FOR ACUTE CVA. BLOOD AND URINE CULTURE. IV HYDRATION, IV ATBX THERAPY. CONTINUE BP MONITORING, CONTINUE SUPPLEMENTAL O2 (2) Urinary tract infection Status: Acute (3) Anemia Status: Acute (4) Hypertension Status: Acute
[2022-03-15] MEDS: NORCO 5/325 MG TAB PO PRN ×4 (03:39→22:40)
[2022-03-15] MEDS: NS 1,000 ML IV 1,000 ML IV SCH ×2 (05:07→18:00)
[2022-03-15] MEDS: TOBRAMYCIN SULFATE 100 MG in NS 100 ML IV 97.5 ML IV SCH (05:07)
[2022-03-15 05:16] LABS: BASOPHILS # (AUTO) 0.1 X10^3/uL (0.0-0.1); BASOPHILS % (AUTO) 1.3 % (0.2-1.0); EOSINOPHILS # (AUTO) 0.1 x10^3/uL (0.0-0.2); EOSINOPHILS % (AUTO) 2.1 % (0.9-2.9); HEMATOCRIT 29.5 % (36.0-47.0); HEMOGLOBIN 9.3 g/dL (12.0-16.0); LYMPHOCYTES % (AUTO) 30.9 % (21.0-51.0); MEAN CORPUSCULAR HGB CONC 31.6 g/dL (33.0-35.0); MEAN CORPUSCULAR VOLUME 75.9 fL (80.0-100.0); MEAN PLATELET VOLUME 8.9 fL (7.4-11.0); MONOCYTES # (AUTO) 0.7 x10^3/uL (0.3-0.8); MONOCYTES % (AUTO) 10.9 % (0.0-13.0); NEUTROPHILS # (AUTO) 3.6 x10^3/uL (2.2-4.8); NEUTROPHILS % (AUTO) 54.8 % (42.0-75.0); RED BLOOD COUNT 3.89 X10^6/uL (3.5-5.4); RED CELL DISTRIBUTION WIDTH 18.4 % (11.6-16.5); WHITE BLOOD COUNT 6.5 X10^3/uL (3.6-10.0)
[2022-03-15 05:22] LABS: ALANINE AMINOTRANSFERASE 14 Units/L (12-78); ALBUMIN 2.6 g/dL (3.4-5.0); ALKALINE PHOSPHATASE 65 Units/L (46-116); ASPARTATE AMINO TRANSFERASE 25 Units/L (15-37); BLOOD UREA NITROGEN 5 mg/dL (7-18); CALCIUM 8.6 mg/dL (8.5-10.1); CARBON DIOXIDE 34.4 mmol/L (21-32); CHLORIDE 103 mmol/L (98-107); COR CA(FOR HYPOALB) 9.7 mg/dL (8.5-10.1); COR NA(FOR HYPERGLY) 140 mmol/L (136-145); CREATININE 0.67 mg/dL (0.55-1.02); SODIUM 140 mmol/L (136-145); TOTAL PROTEIN 6.7 g/dL (6.4-8.2); eGFR NON BLACK RACES > 60 (>60)
[2022-03-15] MEDS ORDERED: POTASSIUM CHLORIDE LIQ 20 MEQ UDC PO PRN (05:34)
[2022-03-15] MEDS ORDERED: MICRO K EXTEN CAP 10 MEQ PO PRN (05:34)
[2022-03-15] MEDS ORDERED: K-RIDER 10 MEQ/NS 100 ML 10 MEQ/100 ML BAG IV PRN (05:34)
[2022-03-15] MEDS ORDERED: KLOR-CON PO PRN (05:34)
[2022-03-15] MEDS ORDERED: POTASSIUM CHL 60 MEQ/NS 0.45% 500 ML IV PRN (05:34)
[2022-03-15] MEDS ORDERED: K-DUR TAB 20 MEQ PO PRN (05:34)
[2022-03-15] MEDS ORDERED: POTASSIUM CHL 40 MEQ/NS 0.45% 500 ML IV PRN (05:34)
[2022-03-15] MEDS: ZAROXOLYN PO SCH (09:07)
[2022-03-15] MEDS: COREG TAB 6.25 MG PO SCH ×2 (09:07→20:39)
[2022-03-15] MEDS: LASIX PO SCH (09:07)
[2022-03-15] MEDS: HEMOCYTE-PLUS PO SCH (09:08)
[2022-03-15] MEDS: FOLIC ACID TAB 1 MG PO SCH (09:08)
[2022-03-15] MEDS: NYSTATIN POWDER TOP SCH ×2 (09:08→20:40)
[2022-03-15] MEDS: ASPIRIN EC 81 MG PO SCH (09:08)
[2022-03-15] MEDS: PROTONIX TAB 40 MG PO SCH (09:08)
[2022-03-15] MEDS: MAG-OX TAB PO SCH ×2 (09:08→20:40)
[2022-03-15] MEDS: K-DUR TAB 20 MEQ PO SCH (09:08)
[2022-03-15] MEDS: LOVENOX INJ 40 MG SYR SC SCH (09:09)
[2022-03-15] MEDS: INVanz INJ 1 GRAM VIAL 1 G in NS 100 ML IV 100 ML IV SCH (09:12)
[2022-03-15] MEDS: MAGNESIUM SULFATE 1 GRAM/100 mL PREMIX 1 G/100 ML BAG IV PRN ×2 (09:30→13:07)
[2022-03-15] MEDS ORDERED: PHARMACY COMMENT IV NR ×2 (13:30→15:30)
[2022-03-15] MEDS ORDERED: TYLENOL 500 MG TAB EXTRA STRENGTH PO ONE (14:13)
--- NOTE | 2022-03-15 14:30 | RAD ---
HISTORYCOUGH, SOBSTUDYCHEST, 1 [id number] lungs are clear. No pneumothorax or significant effusion.Heart size is normal.Bones are unremarkable.EKG leads are noted.IMPRESSION1. No significant abnormalityElectronically signed by: Mal Shi (Mar 15, 2022 14:29:10)
[2022-03-16] MEDS: NORCO 5/325 MG TAB PO PRN ×2 (04:09→09:28)
[2022-03-16 05:42] LABS: BASOPHILS # (AUTO) 0.1 X10^3/uL (0.0-0.1); BASOPHILS % (AUTO) 2.5 % (0.2-1.0); EOSINOPHILS # (AUTO) 0.2 x10^3/uL (0.0-0.2); EOSINOPHILS % (AUTO) 3.3 % (0.9-2.9); HEMATOCRIT 29.9 % (36.0-47.0); HEMOGLOBIN 9.4 g/dL (12.0-16.0); LYMPHOCYTES # (AUTO) 1.7 X10^3/uL (1.3-2.9); LYMPHOCYTES % (AUTO) 27.8 % (21.0-51.0); MEAN CORPUSCULAR HEMOGLOBIN 23.6 pg (27.0-34.0); MEAN CORPUSCULAR HGB CONC 31.3 g/dL (33.0-35.0); MEAN CORPUSCULAR VOLUME 75.3 fL (80.0-100.0); MEAN PLATELET VOLUME 9.1 fL (7.4-11.0); MONOCYTES # (AUTO) 0.7 x10^3/uL (0.3-0.8); MONOCYTES % (AUTO) 11.7 % (0.0-13.0); NEUTROPHILS # (AUTO) 3.3 x10^3/uL (2.2-4.8); NEUTROPHILS % (AUTO) 54.7 % (42.0-75.0); RED BLOOD COUNT 3.97 X10^6/uL (3.5-5.4); RED CELL DISTRIBUTION WIDTH 18.1 % (11.6-16.5)
[2022-03-16 05:56] LABS: ALANINE AMINOTRANSFERASE 16 Units/L (12-78); ALBUMIN 2.6 g/dL (3.4-5.0); ALKALINE PHOSPHATASE 68 Units/L (46-116); ASPARTATE AMINO TRANSFERASE 24 Units/L (15-37); BLOOD UREA NITROGEN 4 mg/dL (7-18); CALCIUM 8.7 mg/dL (8.5-10.1); CARBON DIOXIDE 34.3 mmol/L (21-32); CHLORIDE 99 mmol/L (98-107); COR CA(FOR HYPOALB) 9.8 mg/dL (8.5-10.1); CREATININE 0.61 mg/dL (0.55-1.02); SODIUM 138 mmol/L (136-145); TOTAL PROTEIN 6.7 g/dL (6.4-8.2); eGFR NON BLACK RACES > 60 (>60)
[2022-03-16] MEDS: NS 1,000 ML IV 1,000 ML IV SCH (07:52)
[2022-03-16] MEDS: INVanz INJ 1 GRAM VIAL 1 G in NS 100 ML IV 100 ML IV SCH (09:26)
[2022-03-16] MEDS: LASIX PO SCH (09:26)
[2022-03-16] MEDS: K-DUR TAB 20 MEQ PO SCH (09:27)
[2022-03-16] MEDS: FOLIC ACID TAB 1 MG PO SCH (09:27)
[2022-03-16] MEDS: MAG-OX TAB PO SCH (09:27)
[2022-03-16] MEDS: PROTONIX TAB 40 MG PO SCH (09:27)
[2022-03-16] MEDS: COREG TAB 6.25 MG PO SCH (09:27)
[2022-03-16] MEDS: ASPIRIN EC 81 MG PO SCH (09:27)
[2022-03-16] MEDS: HEMOCYTE-PLUS PO SCH (09:27)
[2022-03-16] MEDS: LOVENOX INJ 40 MG SYR SC SCH (09:28)
[2022-03-16] MEDS ORDERED: LEXAPRO ONE (09:29)
[2022-03-16] MEDS: NYSTATIN POWDER TOP SCH (09:31)
[2022-03-16] MEDS ORDERED: ZOFRAN INJ 4 MG VIAL IVP PRN (09:34)
[2022-03-16] MEDS ORDERED: VIBRAMYCIN PO SCH (10:00)
[2022-03-16 13:01] VITALS: BP 118/73
== END 2022-03-16 14:15 | DRG 690 ==
LOC: ICU
PROVIDERS: ADMIT Internal Medicine; ATTEND Internal Medicine
DX: F41.8 Other specified anxiety disorders; E78.2 Mixed hyperlipidemia; R06.02 Shortness of breath; I50.9 Heart failure, unspecified; E11.9 Type 2 diabetes mellitus without complications; E66.01 Morbid (severe) obesity due to excess calories; M19.90 Unspecified osteoarthritis, unspecified site; F01.518 Vascular dementia, unspecified severity, with other behavioral disturbance; E53.1 Pyridoxine deficiency; I11.0 Hypertensive heart disease with heart failure; N39.0 Urinary tract infection, site not specified; D64.89 Other specified anemias; B96.29 Other Escherichia coli [E. coli] as the cause of diseases classified elsewhere; R26.89 Other abnormalities of gait and mobility; K21.9 Gastro-esophageal reflux disease without esophagitis; E87.6 Hypokalemia; R41.82 Altered mental status, unspecified; J44.9 Chronic obstructive pulmonary disease, unspecified; R53.1 Weakness